=== PATIENT | male | born 1995 | race Caucasian/White ===

== ENCOUNTER 2017-04-16 14:28 | Emergency (ER) | payer SELFPAY ==
[2017-04-16 15:08] VITALS: BP 119/66; TEMP 97.8; O2SAT 100
--- NOTE | 2017-04-16 15:10 | ED.PDOC ---
History of Present Illness - General Chief Complaint: Skin/Abrasion/Tear Stated Complaint: cellulitis to face Time Seen by Provider: 04/16/17 14:58 Source: patient Exam Limitations: no limitations - History of Present Illness Initial Comments: Patient presents stating that he thinks he is getting cellulitis to the left lower cheek. He had that diagnosis two months ago and was given penicillin for it. He was also taking Flagyl but he stopped that because it made him "sick". He had been at the dentist a few days before the diagnosis. Has not been since. He says the sensation in his left cheek is identical to what he had when he got the diagnosis. He is planning to see the dentist soon. He denies any pain, chills, or fevers. No other complaints. Timing/Duration: 24 hours Severity: mild Improving Factors: nothing Worsening Factors: nothing Associated Symptoms: denies symptoms Allergies/Adverse Reactions: Allergies Nickel Allergy (Verified 10/07/13 11:18) Peanut Oil Allergy (Verified 10/07/13 11:18) Peanut-containing Drug Products Allergy (Verified 10/07/13 11:18) Home Medications: Ambulatory Orders NK [NK] 10/07/13 Review of Systems - Review of Systems Constitutional: States: no symptoms reported EENTM: States: see HPI Respiratory: States: no symptoms reported Cardiology: States: no symptoms reported Gastrointestinal/Abdominal: States: no symptoms reported Genitourinary: States: no symptoms reported Musculoskeletal: States: no symptoms reported Skin: States: no symptoms reported Neurological: States: no symptoms reported Endocrine: States: no symptoms reported Hematologic/Lymphatic: States: no symptoms reported Past Medical History (General) - Patient Medical History Hx Seizures: No Hx Stroke: No Hx Dementia: No Hx Asthma: No Hx of COPD: No Hx Cardiac Disorders: No Hx Congestive Heart Failure: No Hx Pacemaker: No Hx Hypertension: No Hx Thyroid Disease: No Hx Diabetes: No Hx Gastroesophageal Reflux: No Hx Renal Disease: No Hx Cancer: No Hx of HIV: No Hx Hepatitis C: No Hx MRSA: No - Vaccination History Hx Tetanus, Diphtheria Vaccination: No Hx Influenza Vaccination: Yes Hx Pneumococcal Vaccination: No - Social History Hx Tobacco Use: No Hx Chewing Tobacco Use: No Hx Alcohol Use: No Hx Substance Use: No Hx Substance Use Treatment: No Hx Depression: No Hx Physical Abuse: No Hx Emotional Abuse: No Hx Suspected Abuse: No - Female History Patient : No Family Medical History - Family History Maternal Hx Family Diabetes: Yes Physical Exam - Physical Exam General Appearance: Alert Eye Exam: bilateral normal Ears, Nose, Throat: normal ENT inspection Neck: non-tender, full range of motion, supple Respiratory: lungs clear Cardiovascular/Chest: normal peripheral pulses, regular rate, rhythm Gastrointestinal/Abdominal: normal bowel sounds, non tender, soft Skin Exam: normal color Lymphatic: no adenopathy Departure - Departure Clinical Impression: Pain of cheek Disposition: Discharge to Home or Self Care Condition: Good Departure Forms: ED Discharge - Pt. Copy, Patient Portal Self Enrollment Instructions: DI for Abrasion Diet: resume usual diet Activity: increase activity as tolerated Home Medications: Ambulatory Orders NK [NK] 10/07/13
== END 2017-04-16 16:00 | disposition home or self-care (01) ==
LOC: ER 14:28
DX: R51 Headache (principal)

== ENCOUNTER 2018-09-19 22:09 | Emergency (ER) | payer SELFPAY ==
[2018-09-19 22:34] VITALS: O2SAT 99
--- NOTE | 2018-09-19 23:01 | RAD ---
EXAM DESCRIPTION: Abdomen Series CLINICAL HISTORY: 23 years Male bloody stool COMPARISON: None TECHNIQUE: Three images of the abdomen were obtained which included a PA view of the chest. FINDINGS: Gas is seen throughout the bowel. Relatively gasless abdomen. Moderate constipation right colon. No abnormal calcifications seen. No intraperitoneal free air. Cardiac size is within normal limits. Central vessels are not increased. No infiltrates or effusions seen. No pneumothorax. IMPRESSION: Nonspecific bowel gas pattern. No bowel obstruction or perforation. No active cardiopulmonary disease. Electronically signed by: Priscilla Deal MD 09/19/2018 10:59 PM CDT
--- NOTE | 2018-09-20 00:14 | CT ---
EXAM DESCRIPTION: Abdomen/Pelvis w/Contrast CLINICAL HISTORY: 23 years Male suspect lower gi bleed COMPARISON: None TECHNIQUE: Images were obtained in axial, sagittal, and coronal planes. Intravenous contrast was administered. This exam was performed according to our departmental dose-optimization program which includes use of Automated Exposure Control, adjustment of the mA and/or kV according to patient size and/or use of iterative reconstruction technique. FINDINGS: Appendix within normal limits. No bowel obstruction, perforation, or inflammation. No extravasation of contrast material to indicate active bleeding. No abnormality involving the liver, spleen, pancreas, gallbladder, or adrenal glands bilaterally. No obstructing renal calcifications bilaterally. No bilaterally. Incompletely distended bladder. No abnormality abdominal aorta or portal vein. No adenopathy or abnormal fluid collections seen. No acute osseous abnormality. No abnormality lower lungs bilaterally. IMPRESSION: No acute intra-abdominal abnormality. Electronically signed by: Priscilla Deal MD 09/20/2018 12:13 AM CDT
[2018-09-20] MEDS ORDERED: MAGNESIUM HYDROXIDE 30 ML UD PO ONE (02:00)
--- NOTE | 2018-09-20 02:01 | ED.PDOC ---
History of Present Illness - General Chief Complaint: GI Problem Stated Complaint: had large bloody stool Time Seen by Provider: 09/19/18 22:11 Source: patient Exam Limitations: no limitations - History of Present Illness Initial Comments: the patient is a 23-year-old male presenting to the emergency room after having had a bloody bowel movement about an hour prior to arrival. No history of any blood in stools. He does not know he's had any hemorrhoids in the past. No rectal trauma. No history of any inflammatory bowel disease. His mother does have significant gluten sensitivity. No history of any cancer. No history of any significant bleeding diatheses. No history of low platelets. He is not taking any blood thinners or significant [id number] anti- inflammatories. He has not had any stomach ulcers. No recent trauma. Physical exam is benign with the exception of 2 fairly small hemorrhoids one of which is mildly inflamed but does not have any overt evidence of active bleeding. Rectal exam shows no definite palpable mass. There is some trace blood.no history of melena, GERD or gastritis. Timing/Duration: momentarily Severity: mild Improving Factors: nothing Worsening Factors: nothing Associated Symptoms: denies symptoms Allergies/Adverse Reactions: Allergies Nickel Allergy (Verified 10/07/13 11:18) Peanut Oil Allergy (Verified 10/07/13 11:18) Peanut-containing Drug Products Allergy (Verified 10/07/13 11:18) Home Medications: Ambulatory Orders Hydrocortisone 25 mg Supp [Anusol-HC Suppository] 1 ea [place] BID #14 sup 09/20/18 Review of Systems - Review of Systems Constitutional: States: no symptoms reported EENTM: States: no symptoms reported Respiratory: States: no symptoms reported Cardiology: States: no symptoms reported Gastrointestinal/Abdominal: States: see HPI Genitourinary: States: no symptoms reported Musculoskeletal: States: no symptoms reported Skin: States: no symptoms reported Neurological: States: no symptoms reported Endocrine: States: no symptoms reported All other Systems: No Change from Baseline Past Medical History (General) - Patient Medical History Hx Seizures: No Hx Stroke: No Hx Dementia: No Hx Asthma: No Hx of COPD: No Hx Cardiac Disorders: No Hx Congestive Heart Failure: No Hx Pacemaker: No Hx Hypertension: No Hx Thyroid Disease: No Hx Diabetes: No Hx Gastroesophageal Reflux: Yes - occasional Hx Renal Disease: No Hx Cancer: No Hx of HIV: No Hx Hepatitis C: No Hx MRSA: No Surgical History: no surgical history - Vaccination History Hx Tetanus, Diphtheria Vaccination: Yes Hx Influenza Vaccination: No Hx Pneumococcal Vaccination: No Immunizations Up to Date: Yes - Social History Hx Tobacco Use: No Hx Chewing Tobacco Use: No Hx Alcohol Use: No Hx Substance Use: No Hx Substance Use Treatment: No Hx Depression: No Feels Threatened In Home Enviroment: No Feels Threatened In a Relationship: No Hx Physical Abuse: No Hx Emotional Abuse: No Hx Suspected Abuse: No - Activities of Daily Living Hospice Agency (if applicable):: None - Female History Patient is a Female of Child Bearing Age (10 -59 yrs old): No Patient : No - Triage Comment ED Triage Comment: pt is calm and denies s/s of hypovolemia Family Medical History - Family History Maternal Family History: Unknown Living Status: Unknown Hx Family Diabetes: Yes Hx Family;Other: thyroid dx, Physical Exam - Physical Exam General Appearance: Alert, Comfortable, No apparent distress Eye Exam: bilateral normal Ears, Nose, Throat: hearing grossly normal, normal ENT inspection Neck: full range of motion, supple Respiratory: lungs clear, normal breath sounds, no respiratory distress, no accessory muscle use Cardiovascular/Chest: normal peripheral pulses, regular rate, rhythm, no edema Peripheral Pulses: radial,right: 2+, radial,left: 2+ Gastrointestinal/Abdominal: non tender, soft Rectal Exam: blood streaked stool, heme positive stool, other - see history of present illness Back Exam: normal inspection, no CVA tenderness, no vertebral tenderness Extremity: normal range of motion, non-tender, normal inspection, no pedal edema, no calf tenderness, normal capillary refill Neurologic: identification clerk II-XII nml as tested, alert, normal mood/affect, oriented x 3 Skin Exam: normal color Comments: Vital Signs - 24 hr 09/19/18 22:15 Pulse Rate [ 100 H pulse ox] Respiratory 18 Rate Blood Pressure 137/83 [Left Arm] O2 Sat by Pulse 99 Oximetry Progress - Progress Progress: 09/20/18 02:02 the patient's 23-year-old male presenting after having had a bloody bowel movement earlier this evening. Vital signs as well as hemoglobin and hematocrit have remained stable. Source of the bleed is not definitive however an internal hemorrhoid is the most likely source given the fact that he does have a few small external ones. The patient can use [id number] Prep aration H for his current hemorrhoid and he will be written for Anusol suppositories for the next week for the likely internal ones. If he has significant continued bleeding or significant worsening then he will need to have an endoscopy performed. Laboratory work along with CT scan are reassuring. He does need to maintain a high-fiber diet and can take some Metamucil daily for the next month to prevent constipation. He was given a dose of milk of magnesia tonight for that purpose. ER warnings are given for any worsening. Follow up with primary care doctor in 1-2 weeks otherwise. - Results/Orders Results/Orders: 09/19/18 23:15 Hold Metformin x 48Hrs [id number] 09/20/18 02:00 Magnesium Hydroxide [Milk Of Magnesia] 30 ml PO ONCE ONE Laboratory Results - last 24 hr 09/19/18 09/19/18 09/19/18 22:30 22:40 22:40 WBC 6.8 RBC 5.15 Hgb 15.8 Hct 46.2 MCV 89.8 MCH 30.6 MCHC 34.1 RDW 12.4 Plt Count 252 MPV 8.3 Absolute Neuts (auto) 4.50 Absolute Lymphs (auto) 1.60 Absolute Monos (auto) 0.30 Absolute Eos (auto) 0.30 Absolute Basos (auto) 0.10 Neutrophils % 66.6 Lymphocytes % 23.2 Monocytes % 5.0 Eosinophils % 4.2 Basophils % 1.0 PT INR PTT (SP) D-Dimer, Quantitative Sodium 136 Potassium 3.8 Chloride 103 Carbon Dioxide 24 Anion Gap 12.8 BUN 22 H Creatinine 0.80 BUN/Creatinine Ratio 27.5 H Random Glucose 110 H Serum Osmolality 275.9 Calcium 9.3 Total Bilirubin 0.6 AST 20 ALT 16 Alkaline Phosphatase 67 Creatine Kinase 99 CK-MB (CK-2) 2.3 CK-MB (CK-2) % Not Reportable Troponin I < 0.02 Serum Total Protein 7.5 Albumin 4.5 Globulin 3.0 Albumin/Globulin Ratio 1.5 TSH 0.76 Urine Color Yellow Urine Appearance Clear Urine pH 5.0 Ur Specific Hutchinson >= 1.030 Urine Protein Negative Urine Glucose (UA) Negative Urine Ketones Trace Urine Blood Negative Urine Nitrite Negative Urine Bilirubin Negative Urine Urobilinogen 0.2 Ur Leukocyte Esterase Negative Urine RBC 0 Urine WBC 0 Ur Epithelial Cells 0 Urine Bacteria 0 Stool Occult Blood 09/19/18 09/19/18 09/20/18 22:40 23:13 01:26 WBC RBC Hgb 15.4 Hct 45.7 MCV MCH MCHC RDW Plt Count MPV Absolute Neuts (auto) Absolute Lymphs (auto) Absolute Monos (auto) Absolute Eos (auto) Absolute Basos (auto) Neutrophils % Lymphocytes % Monocytes % Eosinophils % Basophils % PT 9.8 INR 0.98 PTT (SP) 24.1 D-Dimer, Quantitative 0.26 Sodium Potassium Chloride Carbon Dioxide Anion Gap BUN Creatinine BUN/Creatinine Ratio Random Glucose Serum Osmolality Calcium Total Bilirubin AST ALT Alkaline Phosphatase Creatine Kinase CK-MB (CK-2) CK-MB (CK-2) % Troponin I Serum Total Protein Albumin Globulin Albumin/Globulin Ratio TSH Urine Color Urine Appearance Urine pH Ur Specific Hutchinson Urine Protein Urine Glucose (UA) Urine Ketones Urine Blood Urine Nitrite Urine Bilirubin Urine Urobilinogen Ur Leukocyte Esterase Urine RBC Urine WBC Ur Epithelial Cells Urine Bacteria Stool Occult Blood Positive CT scan of abdomen and pelvis appears benign. There is moderate amount of stool. Departure - Departure Clinical Impression: Lower GI bleed Hemorrhoids Qualifiers: Hemorrhoid type: unspecified Qualified Code(s): K64.9 - Unspecified hemorrhoids Disposition: Discharge to Home or Self Care Condition: Fair Departure Forms: ED Discharge - Pt. Copy, Patient Portal Self Enrollment Instructions: DI for Gastrointestinal Bleeding, Hemorrhoids (DC) Diet: regular diet - High-fiber Activity: increase activity as tolerated Prescriptions: Hydrocortisone 25 mg Supp [Anusol-HC Suppository] 1 ea [place] BID #14 sup Home Medications: Ambulatory Orders Hydrocortisone 25 mg Supp [Anusol-HC Suppository] 1 ea [place] BID #14 sup 09/20/18 Additional Instructions: the patient's 23-year-old male presenting after having had a bloody bowel movement earlier this evening. Vital signs as well as hemoglobin and hematocrit have remained stable. Source of the bleed is not definitive however an internal hemorrhoid is the most likely source given the fact that he does have a few small external ones. The patient can use [id number] Preparation H for his current hemorrhoid and he will be written for Anusol suppositories for the next week for the likely internal ones. If he has significant continued bleeding or significant worsening then he will need to have an endoscopy performed. Laboratory work along with CT scan are reassuring. He does need to maintain a high-fiber diet and can take some Metamucil daily for the next month to prevent constipation. He was given a dose of milk of magnesia tonight for that purpose. ER warnings are given for any worsening. Follow up with primary care doctor in 1-2 weeks otherwise.
[2018-09-20 02:38] VITALS: BP 140/82; TEMP 98
== END 2018-09-20 02:15 | disposition home or self-care (01) ==
LOC: ER 22:09
DX: K92.1 Melena (principal); K64.9 Unspecified hemorrhoids